=== PATIENT | female | born 1990 | race Caucasian/White ===

== ENCOUNTER 2017-04-23 02:00 | Emergency (ER) | payer OTHER ==
[~2017-04-23] VITALS: Ht 172.7 cm; Wt 77.5 kg
[~2017-04-23 02:00] MED LIST: ONDA4TAB10 PO
[2017-04-23 02:05] VITALS: BP 115/73
--- NOTE | 2017-04-23 02:14 | PHYS DOC ---
Past History Additional Past Medical Histor: Pyelonephritis 2014 right; ADHD Past Surgical History: Other Additional Past Surgical Histo: Nephrostomy tube right 2014; right arm bone graft Smoking: Cigarettes Alcohol Use: Occasionally Drug Use: None Adult General Chief Complaint Chief Complaint: ABDOMINAL PAIN HPI HPI Patient is a 26 year old female who presents with burning with urination and increased frequency for 4 days. worsened tonight. No nausea or vomiting. No fever. Loose stool. No recent travel. LMP 03/30 Review of Systems Review of Systems Constitutional: Denies fever or chills Eyes: Denies change in visual acuity, redness, or eye pain HENT: Denies nasal congestion or sore throat Respiratory: Denies cough or shortness of breath Cardiovascular: No chest pain GI: POS abdominal pain, NO nausea, vomiting, bloody stools or diarrhea : POS dysuria;unknown hematuria Musculoskeletal: Denies back pain or joint pain Integument: Denies rash or skin lesions Neurologic: Denies headache, focal weakness or sensory changes All other systems were reviewed and found to be within normal limits, except as documented in this note. Allergies Allergies Allergies Coded Allergies Type Severity Reaction Last Updated Verified Penicillins Allergy Unknown 09/11/15 Yes amoxicillin Allergy Unknown 09/11/15 Yes Physical Exam Physical Exam Constitutional: Well developed, well nourished, no acute distress, non-toxic appearance. HENT: Normocephalic, atraumatic, bilateral external ears normal, oropharynx moist, no oral exudates, nose normal. Eyes: PERRLA, EOMI, conjunctiva normal, no discharge. Neck: Normal range of motion, no tenderness, supple, no stridor. Cardiovascular:Heart rate regular rhythm, no murmur Lungs & Thorax: Bilateral breath sounds clear to auscultation Abdomen: Bowel sounds normal, soft, suprapubic tenderness, no rebound or guarding; no masses, no pulsatile masses. Skin: Warm, dry, no erythema, no rash. Back: No tenderness, no CVA tenderness. Extremities: No tenderness, no cyanosis, no clubbing, ROM intact, no edema. Neurologic: Alert and oriented X 3, normal motor function, normal sensory function, no focal deficits noted. Psychologic: Affect normal, judgement normal, mood normal. Current Patient Data Vital Signs Vital Sign - Last 24 Hours 04/23/17 02:05 Temp 97.4 Pulse 89 Resp 20 Pulse Ox 95 O2 Delivery Room Air Lab Results Laboratory Tests Test 04/23/17 02:10 Urine Collection Type Unknown Urine Color Yellow Urine Clarity Hazy Urine pH 7.0 Urine Specific [place] 1.020 Urine Protein 30 mg/dl (NEG-TRACE) Urine Glucose (UA) Neg mg/dL (NEG) Urine Ketones (Stick) Neg mg/dL (NEG) Urine Blood Large (NEG) Urine Nitrite Neg (NEG) Urine Bilirubin Neg (NEG) Urine Urobilinogen Dipstick 0.2 mg/dL (0.2 mg/dL) Urine Leukocyte Esterase Neg (NEG) Urine RBC >40 /HPF (0-2) Urine WBC 1-4 /HPF (0-4) Urine Squamous Epithelial Cells Few /LPF Urine Bacteria Few /HPF (0-FEW) Course & Med Decision Making Course & Med Decision Making Evaluated patient and reviewed prior records. UA sent. At 0300 am: UA with hematuria. UCG negative. She is not on her menses. She has having UTI symptoms; will treat for cystitis. Bactrim and pyridium po dosed. She has no evidence of acute surgical abdomen. I have spoken with the patient and/or caregivers. I have explained the patient' s condition, diagnosis and treatment plan based on the information available to me at this time. I have answered the patient's and/or caregiver's questions and addressed any concerns. The patient and/or caregivers have as good an understanding of the patient's diagnosis, condition and treatment plan as can be expected at this point. The patient's condition is stable and appropriate for discharge from the emergency department. The patient will pursue further outpatient evaluation with the primary care physician or other designated or consulting physician as outlined in the discharge instructions. The patient and/or caregivers are agreeable to this plan of care and follow-up instructions have been explained in detail. The patient and/or caregivers have received these instructions in written format and have expressed an understanding of the discharge instructions. The patient and/or caregivers are aware that any significant change in condition or worsening of symptoms should prompt an immediate return to this or the closest emergency department or a call to 911. [place] Disclaimer Dragon Disclaimer This electronic medical record was generated, in whole or in part, using a voice recognition dictation system. Departure Departure: Impression: Primary Impression: Cystitis Disposition: HOME, SELF-CARE Condition: STABLE Referrals: ALEX WRIGHT APRN (PCP) Patient Instructions: Urinary Tract Infection Additional Instructions: IF YOUR SYMPTOMS CHANGE OR WORSEN CALL YOUR DOCTOR FOR RE-EVALUATION. Scripts Sulfamethoxazole/Trimethoprim (BACTRIM DS TABLET) 1 Each Tablet 1 TAB PO BID, #14 TAB Prov: KAREN FISH MD 04/23/17 Phenazopyridine Hcl (PYRIDIUM) 200 Mg Tablet 200 MG PO TID, #10 TAB Prov: KAREN FISH MD 04/23/17 KAREN FISH MD Apr 23, 2017 02:14
[2017-04-23 02:43] LABS: BILIRUBIN,URINE NEG (NEG); CLARITY,URINE HAZY; COLOR,URINE YELLOW; GLUCOSE,URINE NEG (NEG); NITRITE,URINE NEG (NEG); UROBILINOGEN,URINE 0.2 mg/dL (0.2 mg/dL)
[2017-04-23 02:44] LABS: BACTERIA,URINE FEW /HPF (0-FEW); RBC,URINE >40 /HPF (0-2); SQUAMOUS EPITHELIAL CELL,UR FEW /LPF
[2017-04-23] MEDS ORDERED: SULF1TAB24 PO (03:05)
[2017-04-23] MEDS ORDERED: PHEN-318 PO (03:05)
[2017-04-23] MEDS ORDERED: PHENAZOPYRIDINE 200 MG TABLET. PO ONE (03:30)
[2017-04-23] MEDS ORDERED: SMZ/TMP 800/160MG TABLET. PO ONE (03:30)
== END 2017-04-23 03:13 | disposition home or self-care (01) ==
LOC: ER 02:00
DX: N30.90 Cystitis, unspecified without hematuria (principal); F90.9 Attention-deficit hyperactivity disorder, unspecified type; F17.210 Nicotine dependence, cigarettes, uncomplicated; Z88.1 Allergy status to other antibiotic agents; Z88.0 Allergy status to penicillin
CPT/HCPCS: 81001; 81025; 99283

== ENCOUNTER 2017-05-01 04:05 | Emergency (ER) | payer OTHER ==
[~2017-05-01] VITALS: Ht 172.7 cm; Wt 77.5 kg
[~2017-05-01 04:05] MED LIST changes: +PHEN-318 PO; +SULF1TAB24 PO
[2017-05-01] MEDS ORDERED: IV NORMAL SALINE 1,000ML 2,340 ML IV SCH (04:30)
[2017-05-01] MEDS ORDERED: ONDANSETRON PF 4 MG/2 ML VIAL. IV ONE ×2 (05:00→05:45)
[2017-05-01] MEDS ORDERED: IV NORMAL SALINE 1,000ML 1,000 ML IV ONE (05:00)
[2017-05-01] MEDS ORDERED: HYDROmorphone PF 1 MG/ML DISP.SYRIN IV ONE ×2 (05:00→05:45)
[2017-05-01] MEDS ORDERED: KETOROLAC 30 MG/ML VIAL. IV ONE (05:00)
--- NOTE | 2017-05-01 05:11 | PHYS DOC ---
Past History Past Medical History: UTI, Other Additional Past Medical Histor: Pyelonephritis 2014 right; ADHD Past Surgical History: Other Additional Past Surgical Histo: Nephrostomy tube right 2014; right arm bone graft Smoking: Cigarettes Alcohol Use: Occasionally Drug Use: None Adult General Chief Complaint Chief Complaint: GROIN PAIN [facility] HPI Patient is a 26-year-old female who has history significant for pyelonephritis with sepsis, hydronephrosis during resulting in a nephrostomy tube, ADHD, presents here today complaining of pain to her left flank radiating to her left groin that started earlier this evening. Patient was seen in the ER here approximately one week ago was diagnosed with urinary tract infection secondary to symptoms that were consistent with a cystitis. Patient reports severe pain to her left flank radiating to her groin. Patient denies any fevers shakes chills. Patient is nauseous but no vomiting or diarrhea. Patient denies any hematuria. Patient reports she is currently taking Bactrim and Pyridium. Patient reports pain is intermittent in nature. Patient denies any vaginal discharge. Patient reports she is expecting her menses. Constitutional: Denies fever or chills Eyes: Denies change in visual acuity, redness, or eye pain HENT: Denies nasal congestion or sore throat Respiratory: Denies cough or shortness of breath Cardiovascular: No additional information not addressed in HPI All other systems were reviewed and found to be within normal limits, except as documented in this note. Constitutional: Well developed, well nourished, no acute distress, non-toxic appearance. HENT: Normocephalic, atraumatic, bilateral external ears normal, oropharynx moist, no oral exudates, nose normal. Eyes: PERRLA, EOMI, conjunctiva normal, no discharge. Neck: Normal range of motion, no tenderness, supple, no stridor. Cardiovascular:Heart rate regular rhythm, Lungs clear to auscultation. Abdomen: Bowel sounds normal, soft, no tenderness, no masses, no pulsatile masses. Skin: Warm, dry, no erythema, no rash. Back: No tenderness, no CVA tenderness. Extremities: No tenderness, no cyanosis, no clubbing, ROM intact, no edema. Neurologic: Alert and oriented X 3, normal motor function, normal sensory function, no focal deficits noted. Psychologic: Affect normal, judgement normal, mood normal. Assessment and plan This is a 26-year-old female who presents here today complaining of left flank pain. Patient's presentation is highly consistent with pyelonephritis versus renal colic. Patient has been given adequate analgesia while in the ER with Toradol, Dilaudid, Zofran, normal saline. A CT scan as well as labs a been ordered. Patient be reassessed after CT scan results. Patient was reevaluated after pain medicines. Patient still having a significant amount discomfort nausea and vomiting in the ED. Patient was informed of her CT scan report. It appears that she has a 6 mm distal left ureteral stone with moderate amount of hydronephrosis. Patient be given a second dose of Dilaudid 0.5 mg IV as well as Zofran. Given the patient's persistent pain and emesis patient will need to be admitted for urological evaluation. We have discussed the case with from [facility] and he is agreed to accept patient for further care and management of her renal colic hydronephrosis. Current Medications Current Medications Current Medications Medications (Trade) Dose Ordered Sig/Patricia Start Time Stop Time Status Last Admin Dose Admin Hydromorphone HCl (Dilaudid) 1 mg 1X ONCE 05/01/17 05:00 05/01/17 05:01 UNV 05/01/17 05:03 1 MG Ketorolac Tromethamine (Toradol) 30 mg 1X ONCE 05/01/17 05:00 05/01/17 05:01 UNV 05/01/17 05:03 30 MG Ondansetron HCl (Zofran) 4 mg 1X ONCE 05/01/17 05:00 05/01/17 05:01 UNV 05/01/17 05:03 4 MG Sodium Chloride 1,000 ml @ 1,000 mls/hr 1X ONCE 05/01/17 05:00 05/01/17 05:59 UNV 05/01/17 05:04 1,000 MLS/HR Allergies Allergies Allergies Coded Allergies Type Severity Reaction Last Updated Verified Penicillins Allergy Unknown 09/11/15 Yes amoxicillin Allergy Unknown 09/11/15 Yes Current Patient Data Vital Signs Vital Signs Date Time Temp Pulse Resp B/P (MAP) Pulse Ox O2 Delivery O2 Flow Rate FiO2 05/01/17 04:10 97.9 79 22 98 Room Air EKG EKG [] Radiology/Procedures Radiology/Procedures [] Course & Med Decision Making Course & Med Decision Making Pertinent Labs and Imaging studies reviewed. (See chart for details) [] Dragon Disclaimer Dragon Disclaimer This electronic medical record was generated, in whole or in part, using a voice recognition dictation system. Departure Departure: Impression: Primary Impression: Renal colic Additional Impressions: Intractable abdominal pain Hydronephrosis Disposition: XF OTHER ([facility] system under ) Condition: STABLE Referrals: SHRUTI ELDER MD (PCP) Problem Qualifiers ALLY WELLER MD May 01, 2017 05:11
[2017-05-01 05:14] LABS: CLARITY,URINE HAZY; COLOR,URINE YELLOW
[2017-05-01 05:15] LABS: BACTERIA,URINE FEW /HPF (0-FEW); BILIRUBIN,URINE NEG (NEG); GLUCOSE,URINE NEG (NEG); NITRITE,URINE NEG (NEG); RBC,URINE >40 /HPF (0-2); SQUAMOUS EPITHELIAL CELL,UR FEW /LPF; UROBILINOGEN,URINE 0.2 mg/dL (0.2 mg/dL); WBC,URINE 0 /HPF (0-4)
[2017-05-01 05:26] LABS: BASO # 0.1 x10^3/uL (0.0-0.2); BASO % 1 % (0-3); EOS # 0.2 x10^3/uL (0.0-0.7); EOS % 2 % (0-3); HEMATOCRIT 37.2 % (36.0-47.0); HEMOGLOBIN 12.9 g/dL (12.0-15.5); LYMPH # 5.3 x10^3/uL (1.0-4.8); LYMPH % 52 % (24-48); MEAN CORPUSCULAR HEMOGLOBIN 32 pg (25-35); MEAN CORPUSCULAR HGB CONC 35 g/dL (31-37); MEAN CORPUSCULAR VOLUME 92 fL (79-100); MONO # 0.9 x10^3/uL (0.0-1.1); MONO % 9 % (0-9); NEUT # 3.7 x10^3uL (1.8-7.7); NEUT % 36 % (31-73); PLATELET COUNT 200 x10^3/uL (140-400); RED BLOOD COUNT 4.03 x10^6/uL (3.50-5.40); WHITE BLOOD COUNT 10.1 x10^3/uL (4.0-11.0)
--- NOTE | 2017-05-01 05:36 | RAD ---
PQRS Compliance Statement: One or more of the following individualized dose reduction techniques were utilized for this examination: 1. Automated exposure control 2. Adjustment of the mA and/or kV according to patient size 3. Use of iterative reconstruction technique CT abdomen/pelvis without contrast May 01, 2017 INDICATION: Left flank and groin pain. COMPARISON: None available TECHNIQUE: Multiple axial CT images of the abdomen and pelvis were obtained without intravenous contrast. Coronal and sagittal reformats are provided. FINDINGS: Lung bases are clear. Heart size is within normal limits. Evaluation of the solid abdominal viscera is limited by lack of intravenous contrast. The liver, spleen, bilateral adrenal glands, pancreas and gallbladder are normal in appearance. The abdominal aorta is normal in course and caliber. There is no abdominal free fluid or free intraperitoneal air. There are no pathologically enlarged lymph nodes in abdomen or pelvis. There is a 3 mm nonobstructing calculus in the superior pole the right kidney. There is a 5 mm calculus at the left ureterovesicular junction with associated mild left hydroureteronephrosis. No calculi are identified within the urinary bladder. Small and large bowel are normal in caliber without evidence for bowel obstruction. No pericolonic inflammatory changes are identified. Moderate amount fecal contents identified throughout the colon. Normal appendix is visualized without adjacent inflammatory changes. Uterus and adnexa are within normal limits. Follicular changes are noted bilaterally. Trace free fluid within the pelvis is likely physiologic. No suspicious osseous lesions are identified. IMPRESSION: 1. There is a 5 mm calculus at the left ureterovesicular junction with associated mild left hydroureteronephrosis. 2. There is a 3 mm nonobstructing calculus in the superior pole the right kidney without right-sided hydronephrosis. Electronically signed by: Meg Valente MD (05/01/2017 5:33 AM) [facility]
[2017-05-01 06:23] VITALS: BP 112/54
[2017-05-01 06:31] LABS: ALBUMIN 3.7 g/dL (3.4-5.0); ALBUMIN/GLOBULIN RATIO 1.1 (1.0-1.7); POTASSIUM 4.1 mmol/L (3.5-5.1); TOTAL PROTEIN 7.1 g/dL (6.4-8.2)
[2017-05-01 06:32] LABS: CALCIUM 8.7 mg/dL (8.5-10.1); CREATININE 0.9 mg/dL (0.6-1.0); GFR 76.9; TOTAL BILIRUBIN 0.3 mg/dL (0.2-1.0)
== END 2017-05-01 06:48 | disposition short-term general hospital (02) ==
LOC: ER 04:05
DX: N13.2 Hydronephrosis with renal and ureteral calculous obstruction (principal); F90.9 Attention-deficit hyperactivity disorder, unspecified type; F17.210 Nicotine dependence, cigarettes, uncomplicated; Z88.1 Allergy status to other antibiotic agents; Z88.0 Allergy status to penicillin
CPT/HCPCS: 36415; 74176; 80053; 81001; 81025; 85025; 96361; 96374; 96375; 96376; 99285; J1170; J1885; J2405; J7030

== ENCOUNTER 2017-09-26 13:08 | Emergency (ER) | payer OTHER ==
[~2017-09-26] VITALS: Ht 172.7 cm; Wt 77.5 kg
[2017-09-26 13:08] VITALS: BP 114/71
[2017-09-26] MEDS ORDERED: IV NORMAL SALINE 1,000ML 1,000 ML IV SCH (13:20)
[2017-09-26 13:29] LABS: BASO # 0.1 x10^3/uL (0.0-0.2); BASO % 1 % (0-3); EOS % 0 % (0-3); HEMATOCRIT 42.9 % (36.0-47.0); HEMOGLOBIN 14.6 g/dL (12.0-15.5); LYMPH # 2.1 x10^3/uL (1.0-4.8); LYMPH % 19 % (24-48); MEAN CORPUSCULAR HEMOGLOBIN 31 pg (25-35); MEAN CORPUSCULAR HGB CONC 34 g/dL (31-37); MEAN CORPUSCULAR VOLUME 92 fL (79-100); MONO # 0.6 x10^3/uL (0.0-1.1); MONO % 5 % (0-9); NEUT # 8.2 x10^3uL (1.8-7.7); NEUT % 75 % (31-73); PLATELET COUNT 258 x10^3/uL (140-400); RED BLOOD COUNT 4.65 x10^6/uL (3.50-5.40); RED CELL DISTRIBUTION WIDTH 12.6 % (11.5-14.5); WHITE BLOOD COUNT 10.9 x10^3/uL (4.0-11.0)
[2017-09-26] MEDS ORDERED: 0.9 % SODIUM CHLORIDE 10 ML DISP.SYRIN. IV PRN (13:30)
[2017-09-26 13:40] LABS: ALBUMIN 4.1 g/dL (3.4-5.0); ALBUMIN/GLOBULIN RATIO 1.1 (1.0-1.7); CALCIUM 9.5 mg/dL (8.5-10.1); CREATININE 0.7 mg/dL (0.6-1.0); TOTAL BILIRUBIN 0.3 mg/dL (0.2-1.0)
[2017-09-26] MEDS ORDERED: ONDANSETRON PF 4 MG/2 ML VIAL. IV ONE (14:00)
[2017-09-26] MEDS ORDERED: FAMOTIDINE 20 MG/2 ML VIAL IVP ONE (14:00)
[2017-09-26] MEDS ORDERED: IV NORMAL SALINE 1,000ML 1,000 ML IV ONE (14:15)
--- NOTE | 2017-09-26 14:39 | PHYS DOC ---
Past History Past Medical History: UTI, Other Additional Past Medical Histor: Pyelonephritis 2014 right; ADHD Past Surgical History: Other Additional Past Surgical Histo: Nephrostomy tube right 2014; right arm bone graft Smoking: Cigarettes Alcohol Use: Occasionally Drug Use: None Adult General Chief Complaint Chief Complaint: ALCOHOL INTOXICATION HPI HPI 27-year-old male patient brought in by EMS because of alcohol intoxication and nausea and vomiting. Patient states she does not drink alcohol and last night has multiple shots of tequila and after few hours and started to have very frequent episodes of nonbloody vomiting with burning feeling in the substernal area. Patient denies , diarrhea, urinary symptom, using illegal drugs. Review of Systems Review of Systems Constitutional: Denies fever or chills [] Eyes: Denies change in visual acuity, redness, or eye pain [] HENT: Denies nasal congestion or sore throat [] Respiratory: Denies cough or shortness of breath [] Cardiovascular: No additional information not addressed in HPI [] GI: Reports abdominal pain, nausea, vomiting, denies bloody stools or diarrhea [ ] : Denies dysuria or hematuria [] Musculoskeletal: Denies back pain or joint pain [] Integument: Denies rash or skin lesions [] Neurologic: Denies headache, focal weakness or sensory changes [] Endocrine: Denies polyuria or polydipsia [] All other systems were reviewed and found to be within normal limits, except as documented in this note. Current Medications Current Medications Current Medications Medications (Trade) Dose Ordered Sig/Patricia Start Time Stop Time Status Last Admin Dose Admin Famotidine (Pepcid Vial) 20 mg 1X ONCE 09/26/17 14:00 09/26/17 14:01 DC 09/26/17 13:49 20 MG Ondansetron HCl (Zofran) 4 mg 1X ONCE 09/26/17 14:00 09/26/17 14:01 DC 09/26/17 13:08 4 MG Sodium Chloride 1,000 ml @ 1,000 mls/hr 1X ONCE 09/26/17 14:15 09/26/17 15:14 09/26/17 14:17 1,000 MLS/HR Sodium Chloride (Normal Saline Flush) 10 ml QSHIFT PRN 09/26/17 13:30 Allergies Allergies Allergies Coded Allergies Type Severity Reaction Last Updated Verified Penicillins Allergy Unknown 09/11/15 Yes amoxicillin Allergy Unknown 09/11/15 Yes Physical Exam Physical Exam Constitutional: Well developed, well nourished, moderate distress, non-toxic appearance. [] HENT: Normocephalic, atraumatic, bilateral external ears normal, oropharynx moist, no oral exudates, nose normal. [] Eyes: PERRLA, EOMI, conjunctiva normal, no discharge. [] Neck: Normal range of motion, no tenderness, supple, no stridor. [] Cardiovascular: No tachycardia, no murmur [] Lungs & Thorax: Bilateral breath sounds clear to auscultation [] Abdomen: Bowel sounds normal, soft, no tenderness, no masses, no pulsatile masses. [] Skin: Warm, dry, no erythema, no rash. [] Back: No tenderness, no CVA tenderness. [] Extremities: No tenderness, no cyanosis, no clubbing, ROM intact, no edema. [] Neurologic: Alert and oriented X 3, normal motor function, normal sensory function, no focal deficits noted. [] Psychologic: Anxious, judgement normal, mood normal. [] Current Patient Data Lab Results Laboratory Tests Test 09/26/17 13:05 09/26/17 13:32 White Blood Count 10.9 x10^3/uL (4.0-11.0) Red Blood Count 4.65 x10^6/uL (3.50-5.40) Hemoglobin 14.6 g/dL (12.0-15.5) Hematocrit 42.9 % (36.0-47.0) Mean Corpuscular Volume 92 fL (79-100) Mean Corpuscular Hemoglobin 31 pg (25-35) Mean Corpuscular Hemoglobin Concent 34 g/dL (31-37) Red Cell Distribution Width 12.6 % (11.5-14.5) Platelet Count 258 x10^3/uL (140-400) Neutrophils (%) (Auto) 75 % (31-73) H Lymphocytes (%) (Auto) 19 % (24-48) L Monocytes (%) (Auto) 5 % (0-9) Eosinophils (%) (Auto) 0 % (0-3) Basophils (%) (Auto) 1 % (0-3) Neutrophils # (Auto) 8.2 x10^3uL (1.8-7.7) H Lymphocytes # (Auto) 2.1 x10^3/uL (1.0-4.8) Monocytes # (Auto) 0.6 x10^3/uL (0.0-1.1) Eosinophils # (Auto) 0.0 x10^3/uL (0.0-0.7) Basophils # (Auto) 0.1 x10^3/uL (0.0-0.2) Sodium Level 140 mmol/L (136-145) Potassium Level 4.0 mmol/L (3.5-5.1) Chloride Level 104 mmol/L (98-107) Carbon Dioxide Level 20 mmol/L (21-32) L Anion Gap 16 (6-14) H Blood Urea Nitrogen 11 mg/dL (7-20) Creatinine 0.7 mg/dL (0.6-1.0) Estimated GFR (Cockcroft-Gault) 102.0 BUN/Creatinine Ratio 16 (6-20) Glucose Level 107 mg/dL (70-99) H Calcium Level 9.5 mg/dL (8.5-10.1) Total Bilirubin 0.3 mg/dL (0.2-1.0) Aspartate Amino Transferase (AST) 49 U/L (15-37) H Alanine Aminotransferase (ALT) 38 U/L (14-59) Alkaline Phosphatase 83 U/L (46-116) Total Protein 8.0 g/dL (6.4-8.2) Albumin 4.1 g/dL (3.4-5.0) Albumin/Globulin Ratio 1.1 (1.0-1.7) Lipase 86 U/L (73-393) Ethyl Alcohol Level 40 mg/dL (0-10) H POC Urine HCG, Qualitative hcg negative (Negative) EKG EKG [] Radiology/Procedures Radiology/Procedures [] Course & Med Decision Making Course & Med Decision Making Pertinent Labs studies reviewed. (See chart for details) Evolution of patient in ER showed 27-year-old female patient with alcohol intoxication and multiple nausea and vomiting. Patient was alert and oriented at arrival to ER because continues vomiting that improved with IV fluid and Zofran. Patient tolerated oral intake. Patient had blood alcohol of 40 and CO2 of 20 and anion gap of 16. She ambulated without problem. I've spoken with the patient and/or caregivers. I've explained the patient's condition, diagnosis and treatment plan based on information available to me at this time. I've answered the patient's and/or caregivers questions and addressed any concerns. The patient and/or caregivers have a good understanding the patient's diagnosis, condition and treatment plan as can be expected at this point. Vital signs have been stabilized. The patient's condition is stable for discharge from the emergency department. The patient will pursue further outpatient evaluation with her primary care provider or other designated consulting physician as outlined in the discharge instructions. Patient and/or caregivers are agreeable to this plan of care and follow-up instructions have been explained in detail. The patient and/or caregivers have received these instructions in written format and expressed understanding of these discharge instructions. The patient and her caregivers are aware that if any significant change in condition or worsening of symptoms should prompt him to immediately return to this of the closest emergency department. If an emergent department is not readily available I would encourage him to call 911. [] Dragon Disclaimer Dragon Disclaimer This electronic medical record was generated, in whole or in part, using a voice recognition dictation system. Departure Departure: Impression: Primary Impression: Nausea and vomiting in adult Additional Impression: Alcohol intoxication Disposition: HOME, SELF-CARE (At 1525) Condition: IMPROVED Referrals: SHRUTI ELDER MD (PCP) Patient Instructions: Alcohol Intoxication, Nausea and Vomiting Additional Instructions: Drink plenty of liquids Follow-up with your primary care physician in 3-5 days Return to ER if not getting better Scripts Ondansetron (ZOFRAN ODT) 4 Mg Tab.rapdis 1 TAB SL Q8HRS, #15 TAB Prov: JOSE D DAO MD 09/26/17 Problem Qualifiers JOSE D DAO MD Sep 26, 2017 14:39
[2017-09-26] MEDS ORDERED: ONDA4TAB10 SL (14:54)
[2017-09-26 14:58] LABS: BACTERIA,URINE FEW /HPF (0-FEW); BILIRUBIN,URINE NEG (NEG); CLARITY,URINE CLEAR; COLOR,URINE YELLOW; GLUCOSE,URINE NEG (NEG); NITRITE,URINE NEG (NEG); RBC,URINE 0 /HPF (0-2); SQUAMOUS EPITHELIAL CELL,UR OCC /LPF; U PREG PATIENT NEGATIVE (NEG); UROBILINOGEN,URINE 0.2 mg/dL (0.2 mg/dL)
== END 2017-09-26 15:40 | disposition home or self-care (01) ==
LOC: ER 13:08
DX: F10.129 Alcohol abuse with intoxication, unspecified (principal); F90.9 Attention-deficit hyperactivity disorder, unspecified type; F17.210 Nicotine dependence, cigarettes, uncomplicated; Z88.0 Allergy status to penicillin; Z88.1 Allergy status to other antibiotic agents
CPT/HCPCS: 36415; 80053; 81001; 81025; 83690; 85025; 96361; 96374; 96375; 99284; G0480; J2405; S0028; J7030

== ENCOUNTER 2019-03-10 18:25 | Emergency (ER) | payer MEDICAID, OTHER ==
[~2019-03-10] VITALS: Ht 172.7 cm; Wt 106.6 kg
[~2019-03-10 18:25] MED LIST changes: +ONDA4TAB10 SL
[2019-03-10] MEDS ORDERED: IV NORMAL SALINE 1,000ML 1,000 ML IV ONE (19:15)
[2019-03-10] MEDS ORDERED: ACETAMINOPHEN 500 MG TABLET PO ONE ×2 (19:15→19:16)
[2019-03-10 19:35] LABS: BACTERIA,URINE MOD /HPF (0-FEW); BILIRUBIN,URINE NEG (NEG); CLARITY,URINE CLOUDY; COLOR,URINE YELLOW; GLUCOSE,URINE NEG (NEG); NITRITE,URINE NEG (NEG); RBC,URINE 0 /HPF (0-2); SQUAMOUS EPITHELIAL CELL,UR MANY /LPF; UROBILINOGEN,URINE 0.2 mg/dL (0.2 mg/dL); WBC,URINE OCC /HPF (0-4)
[2019-03-10 19:36] LABS: AMORPHOUS SEDIMENT,UR PRESENT /HPF
[2019-03-10 19:47] LABS: BASO # 0.1 x10^3/uL (0.0-0.2); BASO % 1 % (0-3); EOS # 0.1 x10^3/uL (0.0-0.7); EOS % 1 % (0-3); HEMATOCRIT 36.2 % (36.0-47.0); LYMPH # 1.8 x10^3/uL (1.0-4.8); LYMPH % 18 % (24-48); MEAN CORPUSCULAR HEMOGLOBIN 30 pg (25-35); MEAN CORPUSCULAR HGB CONC 33 g/dL (31-37); MEAN CORPUSCULAR VOLUME 91 fL (79-100); MONO # 1.4 x10^3/uL (0.0-1.1); MONO % 14 % (0-9); NEUT # 6.7 x10^3uL (1.8-7.7); NEUT % 67 % (31-73); PLATELET COUNT 279 x10^3/uL (140-400); RED CELL DISTRIBUTION WIDTH 12.3 % (11.5-14.5); WHITE BLOOD COUNT 10.1 x10^3/uL (4.0-11.0)
[2019-03-10 19:54] LABS: ALBUMIN 2.7 g/dL (3.4-5.0); ALBUMIN/GLOBULIN RATIO 0.6 (1.0-1.7); CALCIUM 8.9 mg/dL (8.5-10.1); CREATININE 0.6 mg/dL (0.6-1.0); GFR 120.8; POTASSIUM 3.9 mmol/L (3.5-5.1); TOTAL BILIRUBIN 0.2 mg/dL (0.2-1.0); TOTAL PROTEIN 7.1 g/dL (6.4-8.2)
[2019-03-10 20:21] VITALS: BP 124/72
--- NOTE | 2019-03-10 20:28 | RAD ---
Indication:History of kidney stones. 24 weeks . Rule out hydronephrosis. TECHNIQUE: Grayscale, color Doppler and spectral waveform images of the kidneys and bladder obtained. COMPARISON: None FINDINGS: Right kidney measures 12.4 x 5.4 x 5.8 cm without hydronephrosis. The resistive index in the interlobular artery measures 0.71 which is within normal limits. Bilateral ureteral jets are seen. Aorta and IVC are within normal limits. Left kidney measures 13.8 x 5.0 x 6.4 cm without hydronephrosis. The resistive index in the interlobular artery measures 0.68 which is within normal limits. IMPRESSION: No hydronephrosis. Electronically signed by: Reid Mercado DO (03/10/2019 8:25 PM) [employer]
--- NOTE | 2019-03-10 20:52 | PHYS DOC ---
Past History Past Medical History: Kidney Infection, Kidney Stones, UTI, Other Additional Past Medical Histor: Septic right kidney Past Surgical History: Cholecystectomy Additional Past Surgical Histo: Nephrostomy tube right 2013; right arm bone graft Smoking: Cigarettes Alcohol Use: None Drug Use: None Adult General Chief Complaint Chief Complaint: FLANK PAIN HPI HPI Patient is a 28-year-old female presenting with chief complaint of back pain and urinary frequency. Patient is a history of a septic kidney last time she was back in 2013 her required a nephrostomy tube she tells me she was intubated sounds and she was critically ill She is referred worried about that she did have a UTI earlier this month she took clindamycin and Macrobid and then she also took Keflex she is really worried because she said she didn't take the Keflex [address] it was prescribed she try to take as much as she could but she so busy she is very worried that she has a persistent urinary tract infection she does notice that seems to eat the urine is foul smelling although she denies any vaginal discharge bleeding or gush of fluid she does notice good movement the symptoms have been ongoing for a month or more Review of Systems Review of Systems Constitutional: Denies fever or chills [] Eyes: Denies change in visual acuity, redness, or eye pain [] HENT: Denies nasal congestion or sore throat [] Integument: Denies rash or skin lesions [] Neurologic: Deniesfocal weakness or sensory changes []positive for intermittent headache Endocrine: Denies polyuria or polydipsia [] All other systems were reviewed and found to be within normal limits, except as documented in this note. Current Medications Current Medications Current Medications Medications (Trade) Dose Ordered Sig/Patricia Start Time Stop Time Status Last Admin Dose Admin Acetaminophen (Tylenol) 500 mg STK-MED ONCE 03/10/19 19:16 03/10/19 19:17 DC Sodium Chloride 1,000 ml @ 1,000 mls/hr 1X ONCE 03/10/19 19:15 03/10/19 20:14 DC 03/10/19 19:26 1,000 MLS/HR Allergies Allergies Allergies Coded Allergies Type Severity Reaction Last Updated Verified Penicillins Allergy Unknown 09/11/15 Yes amoxicillin Allergy Unknown 09/11/15 Yes Physical Exam Physical Exam Constitutional: Well developed, well nourished, no acute distress, non-toxic appearance. [] HENT: Normocephalic, atraumatic, bilateral external ears normal, oropharynx moist, no oral exudates, nose normal. [] Eyes: PERRLA, EOMI, conjunctiva normal, no discharge. [] Neck: Normal range of motion, no tenderness, supple, no stridor. [] Cardiovascular:Heart rate regular rhythm, no murmur [] Lungs & Thorax: Bilateral breath sounds clear to auscultation [] Abdomen: Bowel sounds normal, soft, no tenderness, no masses, no pulsatile masses. [] Skin: Warm, dry, no erythema, no rash. [] Back: No tenderness, r CVA tenderness Extremities: No tenderness, no cyanosis, no clubbing, ROM intact, no edema. [] Neurologic: Alert and oriented X 3, normal motor function, normal sensory function, no focal deficits noted. [] Psychologic: Affect normal, judgement normal, mood normal. [] Current Patient Data Vital Signs Vital Signs Date Time Temp Pulse Resp B/P (MAP) Pulse Ox O2 Delivery O2 Flow Rate FiO2 03/10/19 20:21 97.8 90 20 124/72 (89) 99 Room Air Lab Results Laboratory Tests Test 03/10/19 18:52 03/10/19 18:55 03/10/19 19:25 Urine Collection Type Unknown Urine Color Yellow Urine Clarity Cloudy Urine pH 7.0 Urine Specific [place] 1.020 Urine Protein Neg (NEG-TRACE) Urine Glucose (UA) Neg mg/dL (NEG) Urine Ketones (Stick) Neg mg/dL (NEG) Urine Blood Neg (NEG) Urine Nitrite Neg (NEG) Urine Bilirubin Neg (NEG) Urine Urobilinogen Dipstick 0.2 mg/dL (0.2 mg/dL) Urine Leukocyte Esterase Neg (NEG) Urine RBC 0 /HPF (0-2) Urine WBC Occ /HPF (0-4) Urine Squamous Epithelial Cells Many /LPF Urine Amorphous Sediment Present /HPF Urine Bacteria Mod /HPF (0-FEW) Urine Mucus Slight /LPF POC Urine HCG, Qualitative hcg positive (Negative) White Blood Count 10.1 x10^3/uL (4.0-11.0) Red Blood Count 4.00 x10^6/uL (3.50-5.40) Hemoglobin 12.0 g/dL (12.0-15.5) Hematocrit 36.2 % (36.0-47.0) Mean Corpuscular Volume 91 fL (79-100) Mean Corpuscular Hemoglobin 30 pg (25-35) Mean Corpuscular Hemoglobin Concent 33 g/dL (31-37) Red Cell Distribution Width 12.3 % (11.5-14.5) Platelet Count 279 x10^3/uL (140-400) Neutrophils (%) (Auto) 67 % (31-73) Lymphocytes (%) (Auto) 18 % (24-48) L Monocytes (%) (Auto) 14 % (0-9) H Eosinophils (%) (Auto) 1 % (0-3) Basophils (%) (Auto) 1 % (0-3) Neutrophils # (Auto) 6.7 x10^3uL (1.8-7.7) Lymphocytes # (Auto) 1.8 x10^3/uL (1.0-4.8) Monocytes # (Auto) 1.4 x10^3/uL (0.0-1.1) H Eosinophils # (Auto) 0.1 x10^3/uL (0.0-0.7) Basophils # (Auto) 0.1 x10^3/uL (0.0-0.2) Sodium Level 137 mmol/L (136-145) Potassium Level 3.9 mmol/L (3.5-5.1) Chloride Level 103 mmol/L (98-107) Carbon Dioxide Level 24 mmol/L (21-32) Anion Gap 10 (6-14) Blood Urea Nitrogen 11 mg/dL (7-20) Creatinine 0.6 mg/dL (0.6-1.0) Estimated GFR (Cockcroft-Gault) 120.8 BUN/Creatinine Ratio 18 (6-20) Glucose Level 81 mg/dL (70-99) Calcium Level 8.9 mg/dL (8.5-10.1) Total Bilirubin 0.2 mg/dL (0.2-1.0) Aspartate Amino Transferase (AST) 18 U/L (15-37) Alanine Aminotransferase (ALT) 20 U/L (14-59) Alkaline Phosphatase 97 U/L (46-116) Total Protein 7.1 g/dL (6.4-8.2) Albumin 2.7 g/dL (3.4-5.0) L Albumin/Globulin Ratio 0.6 (1.0-1.7) L EKG EKG [] Radiology/Procedures Radiology/Procedures [] Course & Med Decision Making Course & Med Decision Making Pertinent Labs and Imaging studies reviewed. (See chart for details) []28-year-old female presenting with flank pain and dysuria history of prior UTI sounds complicated in the past prior history of kidney stones. We did a workup in the emergency room likely the urinalysis the white blood cell count the renal ultrasound the vital signs are all looking good no evidence of acute septic shock or pyelonephritis in the emergency room patient was reassured to the best my ability had good heart tones in the 150s good movement symptoms ongoing for a month this does not seem like active labor at all. will do urine culture to be sure but only occ wbc doubt acute uti. Dragon Disclaimer Dragon Disclaimer This electronic medical record was generated, in whole or in part, using a voice recognition dictation system. Departure Departure: Impression: Primary Impression: Back pain Disposition: 01 HOME, SELF-CARE Condition: STABLE Patient Instructions: Back Pain in FERNANDA DOWD MD Mar 10, 2019 20:52
== END 2019-03-10 21:04 | disposition home or self-care (01) ==
LOC: ER 18:25
DX: O26.892 Other specified pregnancy related conditions, second trimester (principal); M54.9 Dorsalgia, unspecified; R51 Headache; O23.42 Unspecified infection of urinary tract in pregnancy, second trimester; O26.832 Pregnancy related renal disease, second trimester; Z87.442 Personal history of urinary calculi; O99.332 Smoking (tobacco) complicating pregnancy, second trimester; Z90.49 Acquired absence of other specified parts of digestive tract; Z3A.34 34 weeks gestation of pregnancy; Z88.0 Allergy status to penicillin; Z88.1 Allergy status to other antibiotic agents
CPT/HCPCS: 36415; 76770; 80053; 81001; 81025; 85025; 87086; 99285-25; J7030